=== PATIENT | male | born 1995 | race American Indian/Alaskan Native ===

== ENCOUNTER 2016-12-23 13:01 | Emergency (ER) | payer OTHER ==
[2016-12-23 13:53] VITALS: BP 104/65
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
== END 2016-12-23 18:20 | disposition home or self-care (01) ==
LOC: ED 13:01
DX: M79.605 Pain in left leg (principal)
CPT/HCPCS: 99283

== ENCOUNTER 2020-11-02 03:47 | Emergency (ER) | payer SELFPAY ==
[2020-11-02 03:55] VITALS: BP 138/102
--- NOTE | 2020-11-02 04:11 | Emergency Department Report ---
ED General Adult HPI - General Chief complaint: Dental/Oral Stated complaint: TOOTHACHE Source: patient Mode of arrival: Ambulatory Limitations: No Limitations - History of Present Illness Initial comments: Patient is a 25-year-old -[place] male with no past medical history presents to the ED with complaint of acute onset persistent severe left mandibular premolar molar toothache with swelling painful left mandibular gingiva for the last 3 days. Patient states that he has been taking [id number] medication with no relief. Patient denies dizziness, syncope, sore throat, nausea and vomiting, chest pain, shortness of breath, diarrhea, change in vision, traumatic injury or nasal and sinus congestion. MD Complaint: left mandibular premolar and molar toothache; swollen gums -: Sudden, days(s) (3) Location: mouth Radiation: non-radiation Severity scale (0 -10): 8 Quality: aching, sharp Consistency: constant Improves with: none Worsens with: eating Associated Symptoms: denies other symptoms. denies: confusion, chest pain, cough, diaphoresis, fever/chills, headaches, loss of appetite, malaise, nausea/vomiting, rash, seizure, shortness of breath, syncope, weakness, other Treatments Prior to Arrival: none - Related Data Previous Rx's Medication Instructions Recorded Last Taken Type Cyclobenzaprine [Flexeril] 10 mg PO QHS PRN #20 tablet 12/23/16 Unknown Rx Naproxen [Naprosyn] 500 mg PO BID #20 tablet 12/23/16 Unknown Rx Lansoprazole [Prevacid] 15 mg PO BID #30 cap 03/17/20 Unknown Rx Ondansetron [Zofran ODT TAB] 4 mg PO Q6H PRN #10 tab.rapdis 03/17/20 Unknown Rx Clindamycin [Clindamycin CAP] 300 mg PO Q8HR #60 capsule 11/02/20 Unknown Rx Ibuprofen [Motrin] 800 mg PO Q8HR PRN #30 tablet 11/02/20 Unknown Rx traMADoL [Ultram] 50 mg PO Q6HR PRN #12 tablet 11/02/20 Unknown Rx Allergies Allergy/AdvReac Type Severity Reaction Status Date / Time No Known Allergies Allergy Unverified 12/23/16 13:49 ED Review of Systems ROS: Stated complaint: TOOTHACHE Other details as noted in HPI Constitutional: denies: chills, fever Eyes: denies: eye pain, eye discharge, vision change ENT: dental pain (Left mandibular premolar molar tooth toothache, painful swollen left mandibular gingiva). denies: ear pain, throat pain, hearing loss, epistaxis, congestion Respiratory: denies: cough, orthopnea, shortness of breath, wheezing Cardiovascular: denies: chest pain, palpitations, edema, syncope, paroxysmal nocturnal dyspnea Endocrine: no symptoms reported. denies: increased hunger Gastrointestinal: denies: abdominal pain, nausea, diarrhea Genitourinary: denies: urgency, dysuria Musculoskeletal: denies: back pain, joint swelling, arthralgia Skin: denies: rash, lesions Neurological: denies: headache, weakness, paresthesias Psychiatric: denies: anxiety, depression Hematological/Lymphatic: denies: easy bleeding, easy bruising ED Past Medical Hx - Surgical History Hx Appendectomy: Yes - Social History Smoking Status: Never Smoker - Medications Home Medications: Home Medications Medication Instructions Recorded Confirmed Last Taken Type Cyclobenzaprine [Flexeril] 10 mg PO QHS PRN #20 tablet 12/23/16 Unknown Rx Naproxen [Naprosyn] 500 mg PO BID #20 tablet 12/23/16 Unknown Rx Lansoprazole [Prevacid] 15 mg PO BID #30 cap 03/17/20 Unknown Rx Ondansetron [Zofran ODT TAB] 4 mg PO Q6H PRN #10 tab.rapdis 03/17/20 Unknown Rx Clindamycin [Clindamycin CAP] 300 mg PO Q8HR #60 capsule 11/02/20 Unknown Rx Ibuprofen [Motrin] 800 mg PO Q8HR PRN #30 tablet 11/02/20 Unknown Rx traMADoL [Ultram] 50 mg PO Q6HR PRN #12 tablet 11/02/20 Unknown Rx ED Physical Exam - General Limitations: No Limitations General appearance: alert, in no apparent distress - Head Head exam: Present: atraumatic, normocephalic, normal inspection - Eye Eye exam: Present: normal appearance, PERRL, EOMI Pupils: Present: normal accommodation - ENT ENT exam: Present: mucous membranes moist, TM's normal bilaterally, normal external ear exam, other (Swollen, severely tender left mandibular gingiva; severely tender left mandibular premolar and molar teeth) - Neck Neck exam: Present: normal inspection, full ROM. Absent: tenderness, meningismus, lymphadenopathy, thyromegaly - Respiratory Respiratory exam: Present: normal lung sounds bilaterally. Absent: respiratory distress, chest wall tenderness, decreased breath sounds, other - Cardiovascular Cardiovascular Exam: Present: regular rate, normal rhythm, normal heart sounds. Absent: systolic murmur, diastolic murmur, rubs, gallop - GI/Abdominal GI/Abdominal exam: Present: soft, normal bowel sounds. Absent: distended, tenderness, guarding, hyperactive bowel sounds, hypoactive bowel sounds, organomegaly, pulsatile mass, hernia - Extremities Exam Extremities exam: Present: normal inspection, full ROM, normal capillary refill - Back Exam Back exam: Present: normal inspection, full ROM. Absent: tenderness, CVA tenderness (R), CVA tenderness (L), muscle spasm, vertebral tenderness - Neurological Exam Neurological exam: Present: alert, oriented X3, CN II-XII intact, normal gait, reflexes normal - Psychiatric Psychiatric exam: Present: normal affect, normal mood - Skin Skin exam: Present: warm, dry, intact, normal color. Absent: rash ED Course Vital Signs 11/02/20 03:53 Temperature 98.6 F Pulse Rate 96 H Respiratory 18 Rate Blood Pressure 138/102 O2 Sat by Pulse 98 Oximetry ED Medical Decision Making - Medical Decision Making This is a 25-year-old -[place] male with no past medical history presents to the ED with complaint of acute onset persistent severe left mandibular premolar molar toothache with swelling painful left mandibular gingiva for the last 3 days. Patient states that he has been taking ujuq-[id number]-ciehlop medication with no relief. In the ED, patient is alert and oriented x3 and is not in any distress. Patient was discharged home on medications based on the clinical and physical exam findings of suspected acute gingivitis and dental abscesses. Patient was discharged home and advised to follow-up with his dentist in 5 to 7 days for reevaluation or return to the ED immediately if symptoms get worse. - Differential Diagnosis Dental abscess, dental caries, gingivitis Critical care attestation.: If time is entered above; I have spent that time in minutes in the direct care of this critically ill patient, excluding procedure time. ED Disposition Clinical Impression: Dental abscess, Acute gingivitis, Dental caries Disposition: TO HOME OR SELFCARE Is pt being admited?: No Does the pt Need Aspirin: No Condition: Stable Instructions: Dental Abscess, [id number], Trench Mouth Additional Instructions: Take medication with food, drink plenty of fluids and follow-up with your dentist in 7 to 10 days for reevaluation. Return to the ED immediately if symptoms get worse. Prescriptions: Clindamycin [Clindamycin CAP] 300 mg PO Q8HR #60 capsule Ibuprofen [Motrin] 800 mg PO Q8HR PRN #30 tablet PRN Reason: Pain , Severe (7-10) traMADoL [Ultram] 50 mg PO Q6HR PRN #12 tablet PRN Reason: Pain Referrals: [facility] [Outside] - 7-10 days Time of Disposition: 04:08 Print Language: KOREAN
== END 2020-11-02 04:26 | disposition home or self-care (01) ==
LOC: ED 03:47
DX: K04.7 Periapical abscess without sinus (principal); K05.00 Acute gingivitis, plaque induced; K02.9 Dental caries, unspecified; Z79.899 Other long term (current) drug therapy; Z90.49 Acquired absence of other specified parts of digestive tract
CPT/HCPCS: 99282

== ENCOUNTER 2020-11-15 08:24 | Emergency (ER) | payer SELFPAY ==
[2020-11-15 08:59] VITALS: BP 130/72
[2020-11-15] MEDS ORDERED: PENICILLIN G BENZATHINE 1.2 MILLION UNIT/2 ML INJ IM ONE (10:13)
--- NOTE | 2020-11-15 10:14 | Emergency Department Report ---
ED ENT HPI - General Chief complaint: Dental/Oral Stated complaint: TOOTH PAIN Time Seen by Provider: 11/15/20 10:09 Source: patient Mode of arrival: Ambulatory Limitations: No Limitations - History of Present Illness Initial comments: Patient is a 25-year-old male that comes to the emergency room with dental caries involving his left mandible. There is no abscess. No trismus. Controlling secretions. ABCs intact with normal vital signs. -: Gradual, days(s) Severity: moderate Worsens with: none Context- Dental: history of dental caries Associated Symptoms: toothache - Related Data Previous Rx's Medication Instructions Recorded Last Taken Type Cyclobenzaprine [Flexeril] 10 mg PO QHS PRN #20 tablet 12/23/16 Unknown Rx Naproxen [Naprosyn] 500 mg PO BID #20 tablet 12/23/16 Unknown Rx Lansoprazole [Prevacid] 15 mg PO BID #30 cap 03/17/20 Unknown Rx Ondansetron [Zofran ODT TAB] 4 mg PO Q6H PRN #10 tab.rapdis 03/17/20 Unknown Rx Clindamycin [Clindamycin CAP] 300 mg PO Q8HR #60 capsule 11/02/20 Unknown Rx Ibuprofen [Motrin] 800 mg PO Q8HR PRN #30 tablet 11/02/20 Unknown Rx traMADoL [Ultram] 50 mg PO Q6HR PRN #12 tablet 11/02/20 Unknown Rx Amoxicillin [Trimox CAP] 500 mg PO BID #20 capsule 11/15/20 Unknown Rx Allergies Allergy/AdvReac Type Severity Reaction Status Date / Time No Known Allergies Allergy Unverified 12/23/16 13:49 ED Dental HPI - General Chief complaint: Dental/Oral Stated complaint: TOOTH PAIN Time Seen by Provider: 11/15/20 10:09 Source: patient Mode of arrival: Ambulatory Limitations: No Limitations - Related Data Previous Rx's Medication Instructions Recorded Last Taken Type Cyclobenzaprine [Flexeril] 10 mg PO QHS PRN #20 tablet 12/23/16 Unknown Rx Naproxen [Naprosyn] 500 mg PO BID #20 tablet 12/23/16 Unknown Rx Lansoprazole [Prevacid] 15 mg PO BID #30 cap 03/17/20 Unknown Rx Ondansetron [Zofran ODT TAB] 4 mg PO Q6H PRN #10 tab.rapdis 03/17/20 Unknown Rx Clindamycin [Clindamycin CAP] 300 mg PO Q8HR #60 capsule 11/02/20 Unknown Rx Ibuprofen [Motrin] 800 mg PO Q8HR PRN #30 tablet 11/02/20 Unknown Rx traMADoL [Ultram] 50 mg PO Q6HR PRN #12 tablet 11/02/20 Unknown Rx Amoxicillin [Trimox CAP] 500 mg PO BID #20 capsule 11/15/20 Unknown Rx Allergies Allergy/AdvReac Type Severity Reaction Status Date / Time No Known Allergies Allergy Unverified 12/23/16 13:49 ED Review of Systems ROS: Stated complaint: TOOTH PAIN Other details as noted in HPI Comment: All other systems reviewed and negative ED Past Medical Hx - Past Medical History Previous Medical History?: No - Surgical History Past Surgical History?: Yes Hx Appendectomy: Yes - Family History Family history: no significant - Social History Smoking Status: Never Smoker Substance Use Type: Alcohol - Medications Home Medications: Home Medications Medication Instructions Recorded Confirmed Last Taken Type Cyclobenzaprine [Flexeril] 10 mg PO QHS PRN #20 tablet 12/23/16 Unknown Rx Naproxen [Naprosyn] 500 mg PO BID #20 tablet 12/23/16 Unknown Rx Lansoprazole [Prevacid] 15 mg PO BID #30 cap 03/17/20 Unknown Rx Ondansetron [Zofran ODT TAB] 4 mg PO Q6H PRN #10 tab.rapdis 03/17/20 Unknown Rx Clindamycin [Clindamycin CAP] 300 mg PO Q8HR #60 capsule 11/02/20 Unknown Rx Ibuprofen [Motrin] 800 mg PO Q8HR PRN #30 tablet 11/02/20 Unknown Rx traMADoL [Ultram] 50 mg PO Q6HR PRN #12 tablet 11/02/20 Unknown Rx Amoxicillin [Trimox CAP] 500 mg PO BID #20 capsule 11/15/20 Unknown Rx ED Physical Exam - General Limitations: No Limitations General appearance: alert, in no apparent distress - Head Head exam: Present: atraumatic, normocephalic - Eye Eye exam: Present: normal appearance - ENT ENT exam: Present: mucous membranes moist - Expanded ENT Exam Expanded Mouth exam: Absent: drooling, trismus, muffled voice, tongue normal, tongue elevation Teeth exam: Present: dental caries 1 - Other (caries) - Neck Neck exam: Present: normal inspection - Respiratory Respiratory exam: Present: normal lung sounds bilaterally. Absent: respiratory distress - Cardiovascular Cardiovascular Exam: Present: regular rate, normal rhythm. Absent: systolic murmur, diastolic murmur, rubs, gallop - GI/Abdominal GI/Abdominal exam: Present: soft, normal bowel sounds - Rectal Rectal exam: Present: deferred - Extremities Exam Extremities exam: Present: normal inspection - Back Exam Back exam: Present: normal inspection - Neurological Exam Neurological exam: Present: alert, oriented X3 - Psychiatric Psychiatric exam: Present: normal affect, normal mood - Skin Skin exam: Present: warm, dry, intact, normal color. Absent: rash ED Course Vital Signs 11/15/20 08:58 Temperature 98.1 F Pulse Rate 56 L Respiratory 16 Rate Blood Pressure 130/72 [Right] O2 Sat by Pulse 98 Oximetry ED Medical Decision Making - Medical Decision Making ABCs intact. No trismus no abscess Taking p.o. Controlling secretions It was noted that patient has been to the ER several times for dental pain. Have educated him that he cannot continue to take antibiotics that he needs to get definitive care for his dental caries. He verbalizes understanding. I given the patient an IM injection of penicillin. Patient being discharged home with follow-up and antibiotics. He does verbalize understanding of discharge plan of care. I told him that he may come to the ER in the future not be treated for his dental pain. I have encouraged him to get definitive care because dental caries can be and can cause significant medical conditions including endocarditis. Vital Signs 11/15/20 08:58 Temperature 98.1 F Pulse Rate 56 L Respiratory 16 Rate Blood Pressure 130/72 [Right] O2 Sat by Pulse 98 Oximetry - Differential Diagnosis No abscess, dental caries Critical care attestation.: If time is entered above; I have spent that time in minutes in the direct care of this critically ill patient, excluding procedure time. ED Disposition Clinical Impression: Dental caries Disposition: DC-01 TO HOME OR SELFCARE Is pt being admited?: No Does the pt Need Aspirin: No Condition: Stable Additional Instructions: med as ordered today motrin or tylenol for pain follow up with dentist see attached Prescriptions: Amoxicillin [Trimox CAP] 500 mg PO BID #20 capsule Referrals: [facility] [Outside] - 3-5 Days Time of Disposition: 10:12
== END 2020-11-15 10:55 | disposition home or self-care (01) ==
LOC: ED 08:24
DX: K02.9 Dental caries, unspecified (principal); Z79.899 Other long term (current) drug therapy; Z90.49 Acquired absence of other specified parts of digestive tract
CPT/HCPCS: 96372; 99281; J0561

== ENCOUNTER 2021-03-04 02:49 | Emergency (ER) | payer SELFPAY ==
[2021-03-04] MEDS ORDERED: DICYCLOMINE 20 MG TAB PO ONE (03:07)
[2021-03-04] MEDS ORDERED: FAMOTIDINE 20 MG TAB PO ONE (03:07)
[2021-03-04] MEDS ORDERED: ONDANSETRON 4 MG ODT TAB PO ONE (03:07)
[2021-03-04] MEDS ORDERED: SODIUM CHLORIDE 0.9% 1000 ML 1,000 ML IV ONE ×2 (04:40→06:49)
[2021-03-04] MEDS ORDERED: ONDANSETRON 4 MG/2 ML INJ ONE (05:02)
[2021-03-04] MEDS ORDERED: ONDANSETRON 4 MG/2 ML INJ IV ONE (05:06)
[2021-03-04 05:46] LABS: Basophils % (Auto) 0.3 % (0.0-1.8); Eosinophils # (Auto) 0.1 K/mm3 (0.0-0.4); Hematocrit 44.7 % (35.5-45.6); Hemoglobin 15.2 gm/dl (11.8-15.2); Lymphocytes # (Auto) 2.6 K/mm3 (1.2-5.4); Lymphocytes % (Auto) 26.9 % (13.4-35.0); Mean Corpuscular HGB Conc 34 % (32-34); Mean Corpuscular Volume 89 fl (84-94); Monocytes # (Auto) 0.6 K/mm3 (0.0-0.8); Monocytes % (Auto) 6.5 % (0.0-7.3); Platelet Count 294 K/mm3 (140-440); Red Blood Count 5.04 M/mm3 (3.65-5.03)
[2021-03-04 06:09] LABS: Alanine Aminotransferase 19 units/L (7-56); Albumin 4.7 g/dL (3.9-5); BUN/Creatinine Ratio 10; Blood Urea Nitrogen 13 mg/dL (9-20); Calcium 10.2 mg/dL (8.4-10.2); Hemolysis Index 17
[2021-03-04] MEDS ORDERED: diphenhydrAMINE 50 MG/ML VIAL IV ONE (06:47)
--- NOTE | 2021-03-04 06:52 | Emergency Department Report ---
ED Shortness of Breath HPI - General Chief Complaint: Nausea/Vomiting/Diarrhea Stated Complaint: JUAN Time Seen by Provider: 03/04/21 06:47 Source: patient Mode of arrival: Ambulatory Limitations: No Limitations - History of Present Illness Initial Comments: CC: "I can't breathe." HPI: THis is a 26 yo male without significant medical hx who presents with vomiting and shortness of breath. Since eating sandwich from fast food restaurant, he has had nausea vomiting. He also had difficulty breathing. He denies fever, cough, diarrhea or abdominal pain. He denies tobacco, marijuana or alcohol use. MD Complaint: shortness of breath -: Gradual, days(s) (Yesterday afternoon) Severity: mild Consistency: constant Improves With: nothing Worsens With: nothing Associated Symptoms: nausea/vomiting Treatments Prior to Arrival: none - Related Data Previous Rx's Medication Instructions Recorded Last Taken Type Cyclobenzaprine [Flexeril] 10 mg PO QHS PRN #20 tablet 12/23/16 Unknown Rx Naproxen [Naprosyn] 500 mg PO BID #20 tablet 12/23/16 Unknown Rx Lansoprazole [Prevacid] 15 mg PO BID #30 cap 03/17/20 Unknown Rx Ondansetron [Zofran ODT TAB] 4 mg PO Q6H PRN #10 tab.rapdis 03/17/20 Unknown Rx Clindamycin [Clindamycin CAP] 300 mg PO Q8HR #60 capsule 11/02/20 Unknown Rx Ibuprofen [Motrin] 800 mg PO Q8HR PRN #30 tablet 11/02/20 Unknown Rx traMADoL [Ultram] 50 mg PO Q6HR PRN #12 tablet 11/02/20 Unknown Rx Amoxicillin [Trimox CAP] 500 mg PO BID #20 capsule 11/15/20 Unknown Rx Promethazine [Phenergan] 25 mg PO Q6HR PRN #10 tab 03/04/21 Unknown Rx Allergies Allergy/AdvReac Type Severity Reaction Status Date / Time No Known Allergies Allergy Unverified 12/23/16 13:49 ED Review of Systems ROS: Stated complaint: JUAN Other details as noted in HPI Comment: All other systems reviewed and negative Constitutional: denies: chills, fever ENT: denies: throat pain Respiratory: shortness of breath. denies: cough, wheezing Cardiovascular: denies: chest pain Gastrointestinal: nausea, vomiting. denies: abdominal pain, diarrhea Musculoskeletal: denies: back pain ED Past Medical Hx - Past Medical History Previous Medical History?: No - Surgical History Past Surgical History?: Yes Hx Appendectomy: Yes - Family History Family history: hypertension - Social History Smoking Status: Never Smoker Substance Use Type: Alcohol - Medications Home Medications: Home Medications Medication Instructions Recorded Confirmed Last Taken Type Cyclobenzaprine [Flexeril] 10 mg PO QHS PRN #20 tablet 12/23/16 Unknown Rx Naproxen [Naprosyn] 500 mg PO BID #20 tablet 12/23/16 Unknown Rx Lansoprazole [Prevacid] 15 mg PO BID #30 cap 03/17/20 Unknown Rx Ondansetron [Zofran ODT TAB] 4 mg PO Q6H PRN #10 tab.rapdis 03/17/20 Unknown Rx Clindamycin [Clindamycin CAP] 300 mg PO Q8HR #60 capsule 11/02/20 Unknown Rx Ibuprofen [Motrin] 800 mg PO Q8HR PRN #30 tablet 11/02/20 Unknown Rx traMADoL [Ultram] 50 mg PO Q6HR PRN #12 tablet 11/02/20 Unknown Rx Amoxicillin [Trimox CAP] 500 mg PO BID #20 capsule 11/15/20 Unknown Rx Promethazine [Phenergan] 25 mg PO Q6HR PRN #10 tab 03/04/21 Unknown Rx ED Physical Exam - General Limitations: No Limitations General appearance: alert, in no apparent distress, other (laying in Right lateral decubitus position, appears comfortable,) - Head Head exam: Present: atraumatic, normocephalic - Eye Eye exam: Present: normal appearance - ENT ENT exam: Present: mucous membranes moist - Neck Neck exam: Present: normal inspection, full ROM - Respiratory Respiratory exam: Present: normal lung sounds bilaterally. Absent: respiratory distress, wheezes, rales, rhonchi - Cardiovascular Cardiovascular Exam: Present: regular rate, normal rhythm, normal heart sounds. Absent: systolic murmur, diastolic murmur, rubs, gallop - GI/Abdominal GI/Abdominal exam: Present: soft, normal bowel sounds. Absent: distended, guarding, rebound - Rectal Rectal exam: Present: deferred - Extremities Exam Extremities exam: Present: normal inspection - Neurological Exam Neurological exam: Present: alert, oriented X3 - Psychiatric Psychiatric exam: Present: normal affect, normal mood - Skin Skin exam: Present: warm, dry, intact, normal color. Absent: rash ED Course Vital Signs 03/04/21 03/04/21 03/04/21 02:54 08:08 08:16 Temperature 99.4 F Pulse Rate 102 H Respiratory 19 20 25 H Rate Blood Pressure 156/89 Blood Pressure 161/111 [Left] O2 Sat by Pulse 99 100 98 Oximetry 03/04/21 03/04/21 03/04/21 08:30 08:49 08:57 Temperature Pulse Rate Respiratory 13 14 Rate Blood Pressure 156/89 132/84 Blood Pressure [Left] O2 Sat by Pulse 100 88 Oximetry 03/04/21 03/04/21 03/04/21 09:00 09:01 09:16 Temperature Pulse Rate 97 H 85 81 Respiratory 10 L 14 9 L Rate Blood Pressure 133/94 156/89 Blood Pressure [Left] O2 Sat by Pulse 100 98 99 Oximetry 03/04/21 09:24 Temperature Pulse Rate Respiratory 16 Rate Blood Pressure Blood Pressure [Left] O2 Sat by Pulse Oximetry ED Medical Decision Making - Lab Data Result diagrams: 03/04/21 04:16 03/04/21 04:16 - Radiology Data Radiology results: report reviewed [facility] [address] [place] [address] XRay Report Signed Patient: ODALYS GUILLERMO MR#: [id number] : 1995 Acct:[id number] Age/Sex: 26 / M ADM Date: 03/04/21 Loc: ED Attending Dr: Ordering Physician: Katherine Melendez MD Date of Service: 03/04/21 Procedure(s): XR chest 1V ap Accession Number(s): [id number] cc: Katherine Melendez MD Fluoro Time In Minutes: CHEST 1 VIEW 03/04/2021 6:40 AM INDICATION / CLINICAL INFORMATION: dyspnea. COMPARISON: 03/17/2020 FINDINGS: SUPPORT DEVICES: None. HEART / MEDIASTINUM: No significant abnormality. LUNGS / PLEURA: No significant pulmonary or pleural abnormality. No pneumothorax. ADDITIONAL FINDINGS: No significant additional findings. IMPRESSION: 1. No acute findings. Signer Name: Brent Julian MD Signed: 03/04/2021 7:47 AM Workstation Name: [id number] Transcribed By: SS Dictated By: Brent Julian MD Electronically Authenticated By: Brent Julian MD Signed Date/Time: 03/04/21746 DD/ 5 TD/TT: - Medical Decision Making Food poisoning. Patient received IV Zofran, IV diphenhydramine, p.o. Zofran in order to control vomiting. Suspect shortness of breath due to vomiting and dehydration. No evidence of pneumothorax or pneumonia on chest radiograph. PERC negative for PE very low suspicion for pulmonary embolism. Patient prescribed promethazine. Recommended clear liquid diet. CBC chemistry within normal limits. Critical care attestation.: If time is entered above; I have spent that time in minutes in the direct care of this critically ill patient, excluding procedure time. ED Disposition Clinical Impression: Food poisoning, Dehydration Disposition: DC-01 TO HOME OR SELFCARE Is pt being admited?: No Condition: Stable Instructions: Food Poisoning Prescriptions: Promethazine [Phenergan] 25 mg PO Q6HR PRN #10 tab PRN Reason: Nausea Referrals: MERVIN ROBERTSON MD [Staff Physician] - as needed
--- NOTE | 2021-03-04 07:51 | XRay Report ---
CHEST 1 VIEW 03/04/2021 6:40 AM INDICATION / CLINICAL INFORMATION: dyspnea. COMPARISON: 03/17/2020 FINDINGS: SUPPORT DEVICES: None. HEART / MEDIASTINUM: No significant abnormality. LUNGS / PLEURA: No significant pulmonary or pleural abnormality. No pneumothorax. ADDITIONAL FINDINGS: No significant additional findings. IMPRESSION: 1. No acute findings. Signer Name: Brent Julian MD Signed: 03/04/2021 7:47 AM Workstation Name: [id number]
[2021-03-04 10:40] VITALS: BP 145/96
[2021-03-04 12:08] LABS: Amphetamine Screen,Urine Negative; Benzodiazepines Screen,Urine Negative; Cannabinoid Screen,Urine Negative; Cocaine Screen,Urine Negative; Methadone Screen,Urine Negative; Opiate Screen,Urine Negative
[2021-03-04 12:28] LABS: Amorphous Crystals,Urine 3+; Bilirubin,Urine NEG (Negative); Blood,Urine NEG (Negative); Color,Urine Yellow (Yellow); Urobilinogen,Urine < 2.0 mg/dL (<2.0)
== END 2021-03-04 10:40 | disposition home or self-care (01) ==
LOC: ED 02:49
DX: A05.9 Bacterial foodborne intoxication, unspecified (principal); E86.0 Dehydration; R11.2 Nausea with vomiting, unspecified; R06.02 Shortness of breath; I10 Essential (primary) hypertension; Z72.89 Other problems related to lifestyle; Z90.49 Acquired absence of other specified parts of digestive tract; Z79.899 Other long term (current) drug therapy
CPT/HCPCS: 36415; 71045; 80053; 80307; 81001; 83690; 85025; 96361; 96374; 96375; 99283; J1200; J2405; J7030; Q0162